=== PATIENT | female | born 1990 | race Caucasian/White ===

== ENCOUNTER 2016-10-13 09:55 | Emergency (ER) | payer BC ==
[2016-10-13 10:11] VITALS: BP 107/54
--- NOTE | 2016-10-13 10:19 | UC ---
Respiratory Complaint HPI - HPI Summary HPI Summary: pt presents with c/o of nasal, chest congestion and "wheezing" x1 week. Pt has PMH of seasonal allergies and pediatric asthma. Denies fever and chills or SOB. - History of Current Complaint Chief Complaint: UCRespiratory Stated Complaint: COUGH,CONGESTION Time Seen by Provider: 10/13/16 10:02 Hx Obtained From: Patient Hx Last Menstrual Period: 10/06/16 ?: No Onset/Duration: Gradual Onset, Lasting Days - 7 Timing: Constant Severity Initially: Mild Severity Currently: Mild Character: Cough: Nonproductive Aggravating Factors: Allergens, Recumbent Position Alleviating Factors: Nothing Associated Signs And Symptoms: Positive: Wheezing, Nasal Congestion Related History: Seasonal Allergies - Risk Factors Cardiac Risk Factors: Negative Pseudomonas Risk Factors: Negative - Allergies/Home Medications Allergies/Adverse Reactions: Allergies Allergy/AdvReac Type Severity Reaction Status Date / Time No Known Allergies Allergy Verified 10/13/16 10:11 Home Medications: Home Medications Fluticasone NASAL * [Flonase *] 1 spray INH DAILY 10/13/16 [History Confirmed ] Levonorgestrel (Iud) [Kyleena IUD] 17.5 mcg IU ONCE 10/13/16 [History Confirmed 10/13/16] PMH/Surg Hx/FS Hx/Imm Hx Previously Healthy: Yes Respiratory History: Asthma - as a child - Surgical History Surgical History: None Surgery Procedure, Year, and Place: appendectomy 2010 - Family History Known Family History: Positive: Cardiac Disease - Social History Alcohol Use: Occasionally Substance Use Type: None Smoking Status (MU): Never Smoked Tobacco Review of Systems Constitutional: Negative Skin: Negative Eyes: Negative ENT: Other - bilateral ear "fullness", nasal congestion Respiratory: Cough Cardiovascular: Negative Gastrointestinal: Negative Genitourinary: Negative Motor: Negative Neurovascular: Negative Musculoskeletal: Negative Neurological: Negative Psychological: Negative All Other Systems Reviewed And Are Negative: Yes Physical Exam Triage Information Reviewed: Yes Appearance: Well-Appearing Vital Signs: Initial Vital Signs Temp 97.5 F 10/13/16 10:06 Pulse 88 10/13/16 10:06 Resp 16 10/13/16 10:06 BP 107/54 10/13/16 10:06 Pulse Ox 99 10/13/16 10:06 Vital Signs Reviewed: Yes Eye Exam: Normal ENT Exam: Other ENT: Positive: Pharyngeal erythema, Nasal congestion, TM bulging - bialtaeral , clear fluid Neck exam: Normal Respiratory Exam: Normal Cardiovascular Exam: Normal Musculoskeletal Exam: Normal Neurological Exam: Normal Psychological Exam: Normal Skin Exam: Normal Diagnostic Evaluation - Laboratory O2 Sat by Pulse Oximetry: 99 Respiratory Course/Dx - Differential Dx/Diagnosis Differential Diagnosis/HQI/PQRI: Asthma, Bronchitis, Other - allergic rhinitis Provider Diagnoses: allergic rhinitis. acute cough Discharge - Discharge Plan Condition: Stable Disposition: HOME Prescriptions: Albuterol HFA INHALER* [Ventolin HFA Inhaler*] 1 - 2 puff INH Q4H PRN #1 mdi PRN Reason: Sob/Wheezing Fexofenadine-Pseudoephedrine [Merary-D 24 Hour Allergy] 1 tab PO DAILY #14 tab predniSONE TAB* [Deltasone TAB*] 30 mg PO DAILY #12 tab Patient Education Materials: Allergic Rhinitis (ED), Acute Cough (ED) Referrals: [facility] [place] [facility] [Outside] Additional Instructions: Please follow up with your PCP or return to clinic as needed.
== END 2016-10-13 10:43 | disposition home or self-care (01) ==
LOC: UCCORT 09:55
DX: J30.9 Allergic rhinitis, unspecified (principal); R05 Cough
CPT/HCPCS: 99202; G0463

== ENCOUNTER 2016-10-18 13:33 | Emergency (ER) | payer BC ==
[2016-10-18 14:40] VITALS: BP 102/59
--- NOTE | 2016-10-18 15:24 | UC ---
Throat Pain/Nasal Lee HPI - HPI Summary HPI Summary: patient has severe throat pain, and right ear pain. denies fever. - History of Current Complaint Chief Complaint: UCGeneralIllness Stated Complaint: ST/EAR PAIN Time Seen by Provider: 10/18/16 15:15 Hx Obtained From: Patient Hx Last Menstrual Period: 10/06/16 Onset/Duration: Sudden Onset, Lasting Days Severity: Severe Associated Signs & Symptoms: Positive: Dysphagia, Sinus Discomfort, Nasal Discharge - Allergies/Home Medications Allergies/Adverse Reactions: Allergies Allergy/AdvReac Type Severity Reaction Status Date / Time No Known Allergies Allergy Verified 10/18/16 14:40 PMH/Surg Hx/FS Hx/Imm Hx Previously Healthy: Yes - Surgical History Surgical History: Yes Surgery Procedure, Year, and Place: appendectomy 2010 - Family History Known Family History: Positive: Cardiac Disease - Social History Alcohol Use: Occasionally Substance Use Type: None Smoking Status (MU): Never Smoked Tobacco Review of Systems Constitutional: Negative Skin: Negative Eyes: Negative ENT: Sore Throat, Ear Ache Respiratory: Cough Cardiovascular: Negative Gastrointestinal: Negative Genitourinary: Negative Motor: Negative Neurovascular: Negative Musculoskeletal: Negative Neurological: Negative Psychological: Negative All Other Systems Reviewed And Are Negative: Yes Physical Exam Triage Information Reviewed: Yes Appearance: Well-Appearing, Well-Nourished, Pain Distress Vital Signs: Initial Vital Signs Temp 97.4 F 10/18/16 14:36 Pulse 87 10/18/16 14:36 Resp 18 10/18/16 14:36 BP 102/59 10/18/16 14:36 Pulse Ox 99 10/18/16 14:36 Vital Signs Reviewed: Yes Eye Exam: Normal Eyes: Positive: Conjunctiva Clear ENT: Positive: Pharyngeal erythema, TM bulging, TM dull, TM red - right ear, Tonsillar swelling, Tonsillar exudate Neck exam: Normal Neck: Positive: Supple, Nontender, No Lymphadenopathy Respiratory Exam: Normal Respiratory: Positive: Chest non-tender, Lungs clear, Normal breath sounds Cardiovascular Exam: Normal Cardiovascular: Positive: RRR, No Murmur, Pulses Normal Abdominal Exam: Normal Abdomen Description: Positive: Nontender, No Organomegaly, Soft Bowel Sounds: Positive: Present Musculoskeletal Exam: Normal Musculoskeletal: Positive: Strength Intact, ROM Intact, No Edema Neurological Exam: Normal Neurological: Positive: Alert, Muscle Tone Normal Psychological Exam: Normal Skin Exam: Normal Throat Pain/Nasal Course/Dx - Course Course Of Treatment: hx obtained, exam performed, meds reviewed, rapid strep obtianed and was negative, treated based on clincal presentation - Differential Dx/Diagnosis Differential Diagnosis/HQI/PQRI: Influenza, Laryngitis, Otitis Media, Pharyngitis, Sinusitis Provider Diagnoses: tonsillitis. right otitis media Discharge - Discharge Plan Condition: Stable Disposition: HOME Patient Education Materials: Tonsillitis (ED) Additional Instructions: 1. take the medication as prescribe.d 2. Lots of warm fluids, 3. Ibuprofen for pain and fever. 4. Follow up with any symptoms not improving.
== END 2016-10-18 15:57 | disposition home or self-care (01) ==
LOC: UCCORT 13:33
DX: J03.90 Acute tonsillitis, unspecified (principal); H66.91 Otitis media, unspecified, right ear
CPT/HCPCS: 87651; 99212; G0463